=== PATIENT | male | born 1970 | race African-American/Black ===

== ENCOUNTER 2024-10-08 16:07 | Inpatient (IN) | payer OTHER ==
[~2024-10-08] VITALS: Ht 182.9 cm; Wt 89.1 kg
[2024-10-08] MEDS ORDERED: ONDANSETRON HCL 4 MG/2 ML VIAL IVP PRN (16:30)
[2024-10-08] MEDS ORDERED: MAGNESIUM HYDROXIDE SUSPENSION 30 ML UDCUP PO PRN (16:30)
[2024-10-08 16:48] LABS: BASOPHILS % (AUTO) 0.7 % (0.0-2.0); HEMATOCRIT 44.2 % (41-53); HEMOGLOBIN 14.6 g/dL (13.5-17.5); LYMPHOCYTES # (AUTO) 2.4 K/uL (1.0-4.8); LYMPHOCYTES % (AUTO) 39.3 % (22.0-44.0); MEAN CORPUSCULAR HEMOGLOBIN 28.9 pg (26.0-34.0); MEAN CORPUSCULAR HGB CONC 33.1 G/dL (31.0-37.0); MEAN CORPUSCULAR VOLUME 87 fL (80-100); MONOCYTES # (AUTO) 0.6 K/uL (0.1-1.0); MONOCYTES % (AUTO) 9.2 % (2.0-9.0); NEUTROPHILS # (AUTO) 2.9 K/uL (1.8-7.7); NEUTROPHILS % (AUTO) 48.8 % (40.0-70.0); PLATELET COUNT (AUTO) 459 K/uL (150-450); RED BLOOD CELL COUNT(AUTO) 5.05 MIL/uL (4.50-5.90); RED CELL DISTRIBUTION WIDTH 14.6 % (11.5-14.5)
[2024-10-08 16:57] LABS: ANION GAP 4 mmol/L (8-16); CALCIUM, TOTAL 8.8 mg/dL (8.8-10.5); CARBON DIOXIDE 29 mmol/L (22-29); CHLORIDE 106 mmol/L (98-107); CREATININE 1.34 mg/dL (0.60-1.30); GLOMERULAR FILTR. RATE CALC > 60 mL/min (>60); GLUCOSE,RANDOM 99 mg/dL (70-110); POTASSIUM 4.6 mmol/L (3.5-5.1); SODIUM SERUM 139 mmol/L (136-145); UREA NITROGEN, BLOOD 15 mg/dL (7-18)
[2024-10-08 17:06] LABS: B-TYPE NATRIURETIC PEPTIDE 1130 pg/mL (0-100)
[2024-10-08 17:07] LABS: TROPONIN I-HIGH SENSITIVITY 121 ng/L (<76)
[2024-10-08 17:34] LABS: ALCOHOL, BLOOD (SERUM) < 3 mg/dL (0-10)
[2024-10-08] MEDS: ASPIRIN 325 MG TABLET PO ONE (17:53)
[2024-10-08] MEDS: METOPROLOL TARTRATE 25 MG TABLET PO ONE (18:29)
[2024-10-08] MEDS: FUROSEMIDE 40 MG/4 ML VIAL IVP ONE (18:29)
[2024-10-08 18:44] LABS: APPEARANCE,URINE CLEAR (CLEAR); BILIRUBIN,URINE NEGATIVE (NEGATIVE); COLOR,URINE LIGHT YELLOW (YELLOW); GLUCOSE, URINE (UA) NEGATIVE (NEGATIVE); KETONES,URINE NEGATIVE (NEGATIVE); LEUKOCYTE ESTERASE ,URINE SMALL (NEGATIVE); NITRATE,URINE POSITIVE (NEGATIVE); OCCULT BLOOD,URINE NEGATIVE (NEGATIVE); PH,URINE 6.5 (5.0-8.0); PH,URINE DRUG SCREEN 6.5 (5.0-8.0); PROTEIN,URINE NEGATIVE (NEGATIVE); SPECIFIC GRAVITIY, URINE 1.014 (1.003-1.030); UROBILINOGEN,URINE <=1.0 mg/dL (<=1.0)
[2024-10-08 18:54] LABS: ALCOHOL, URINE DRUG SCREEN NEGATIVE (NEGATIVE); AMPHET/METH SCREEN,URINE POSITIVE (NEGATIVE); BARBITURATE SCREEN, URINE NEGATIVE (NEGATIVE); BENZODIAZEPINES SCREEN,URINE NEGATIVE (NEGATIVE); CANNABINOID SCREEN,URINE POSITIVE (NEGATIVE); COCAINE SCREEN,URINE NEGATIVE (NEGATIVE); METHADONE SCREEN, URINE NEGATIVE (NEGATIVE); OPIATE SCREEN,URINE NEGATIVE (NEGATIVE); PHENCYCLIDINE SCREEN,URINE NEGATIVE (NEGATIVE)
[2024-10-08 19:47] LABS: TROPONIN I-HIGH SENSITIVITY 124 ng/L (<76)
[2024-10-08 20:04] LABS: BACTERIA,URINE Many /HPF (None Seen); RBC,URINE 0-2 /HPF (0-2); SQUAMOUS EPITHELIAL CELL,UR Few /LPF (None Seen)
[2024-10-08 20:28] VITALS: BP 125/74; PULSE 89; RESP 18; TEMP 97.5; O2SAT 97
[2024-10-08 21:23] VITALS: BP 113/50; PULSE 74; RESP 16; TEMP 98.2; O2SAT 97
[2024-10-08] MEDS: ALBUTEROL SULFATE 2.5 MG/0.5 ML NEB SOLUTION NEB PRN (21:39)
[2024-10-08 21:48] VITALS: PULSE 83; RESP 18; O2SAT 100
[2024-10-08 21:49] VITALS: PULSE 83; RESP 18; O2SAT 100
[2024-10-08] MEDS: ZOLPIDEM TARTRATE 5 MG TABLET PO PRN (23:31)
[2024-10-08 23:57] VITALS: BP 120/78; PULSE 97; RESP 20; TEMP 97.7; O2SAT 97
[2024-10-09 03:51] VITALS: BP 130/88; PULSE 92; RESP 20; TEMP 98; O2SAT 97
[2024-10-09 08:00] VITALS: BP 119/75; PULSE 88; RESP 21; TEMP 97.9; O2SAT 97
[2024-10-09] MEDS: FAMOTIDINE 20 MG TABLET PO SCH (08:23)
[2024-10-09] MEDS: LORazepam 2 MG/ML VIAL IVP ONE (08:48)
[2024-10-09] MEDS ORDERED: CefTRIAXone 1 GM/DEXTROSE 50 ML IV SCH (11:00)
[2024-10-09] MEDS: CIPROFLOXACIN HCL 250 MG TABLET PO SCH (11:44)
[2024-10-09 12:00] VITALS: PULSE 90; RESP 20; TEMP 98; O2SAT 96
[2024-10-09 13:31] LABS: TROPONIN I-HIGH SENSITIVITY 91 ng/L (<76)
[2024-10-09] MEDS: ACETAMINOPHEN 325 MG TABLET PO PRN (16:03)
[2024-10-09 16:07] VITALS: BP 117/79; PULSE 93; RESP 18; TEMP 97.9; O2SAT 98
[2024-10-09 19:39] VITALS: BP 133/77; PULSE 102; RESP 18; TEMP 98.6; O2SAT 97
[2024-10-09] MEDS: BENZONATATE 100 MG CAPSULE PO PRN (19:52)
[2024-10-10 00:13] VITALS: BP 131/70; PULSE 105; RESP 16; TEMP 97.9; O2SAT 97
[2024-10-10 04:31] VITALS: BP 125/73; PULSE 96; RESP 16; TEMP 98.6; O2SAT 97
[2024-10-10 08:41] VITALS: BP 116/69; PULSE 102; RESP 18; TEMP 98.1; O2SAT 98
[2024-10-10] MEDS: METOPROLOL SUCCINATE 25 MG ER TABLET PO SCH (11:30)
[2024-10-10 13:15] VITALS: BP 101/44; PULSE 110; RESP 22; TEMP 97.9; O2SAT 97
[2024-10-10] MEDS: FUROSEMIDE 20 MG/2 ML VIAL IVP SCH (13:50)
[2024-10-10] MEDS: LORazepam 2 MG/ML VIAL IVP PRN (13:53)
[2024-10-10] MEDS: LOSARTAN POTASSIUM 25 MG TABLET PO SCH (13:55)
[2024-10-10] MEDS: SPIRONOLACTONE 25 MG TABLET PO SCH (13:55)
[2024-10-10 20:30] VITALS: BP 115/71; PULSE 110; RESP 19; TEMP 97.7; O2SAT 97
[2024-10-11 01:51] VITALS: BP 102/50; PULSE 103; RESP 20; TEMP 98; O2SAT 97
[2024-10-11 04:13] VITALS: BP 95/58; PULSE 95; RESP 18; TEMP 97.9; O2SAT 97
[2024-10-11 07:21] LABS: BASOPHILS % (AUTO) 0.3 % (0.0-2.0); EOSINOPHILS % (AUTO) 2.8 % (1.0-6.0); HEMATOCRIT 50.3 % (41-53); HEMOGLOBIN 17.1 g/dL (13.5-17.5); LYMPHOCYTES # (AUTO) 2.4 K/uL (1.0-4.8); LYMPHOCYTES % (AUTO) 47.1 % (22.0-44.0); MEAN CORPUSCULAR HEMOGLOBIN 29.3 pg (26.0-34.0); MEAN CORPUSCULAR VOLUME 86 fL (80-100); MONOCYTES # (AUTO) 0.8 K/uL (0.1-1.0); NEUTROPHILS # (AUTO) 1.7 K/uL (1.8-7.7); NEUTROPHILS % (AUTO) 33.8 % (40.0-70.0); PLATELET COUNT (AUTO) 527 K/uL (150-450); RED BLOOD CELL COUNT(AUTO) 5.82 MIL/uL (4.50-5.90); RED CELL DISTRIBUTION WIDTH 14.6 % (11.5-14.5); WHITE BLOOD COUNT (AUTO) 5.1 K/uL (4.5-11.0)
[2024-10-11 07:26] LABS: ANION GAP 10 mmol/L (8-16); CALCIUM, TOTAL 9.2 mg/dL (8.8-10.5); CARBON DIOXIDE 24 mmol/L (22-29); CHLORIDE 102 mmol/L (98-107); CREATININE 1.46 mg/dL (0.60-1.30); GLOMERULAR FILTR. RATE CALC > 60 mL/min (>60); GLUCOSE,RANDOM 124 mg/dL (70-110); POTASSIUM 4.4 mmol/L (3.5-5.1); SODIUM SERUM 136 mmol/L (136-145); UREA NITROGEN, BLOOD 17 mg/dL (7-18)
[2024-10-11 08:16] VITALS: BP 98/45; PULSE 90; RESP 18; TEMP 98.4; O2SAT 96
[2024-10-11 12:56] VITALS: BP 134/58; PULSE 99; RESP 18; TEMP 98.4; O2SAT 99
[2024-10-11 17:47] VITALS: BP 106/67; PULSE 100; RESP 18; TEMP 98.3; O2SAT 96
[2024-10-11 20:20] VITALS: BP 118/76; PULSE 94; RESP 16; TEMP 98.1; O2SAT 95
[2024-10-12 00:32] VITALS: BP 113/66; PULSE 92; RESP 16; TEMP 97.7; O2SAT 95
[2024-10-12 03:57] VITALS: BP 110/67; PULSE 83; RESP 17; TEMP 97.9; O2SAT 95
[2024-10-12 07:12] LABS: ANION GAP 12 mmol/L (8-16); CALCIUM, TOTAL 9.1 mg/dL (8.8-10.5); CARBON DIOXIDE 25 mmol/L (22-29); CHLORIDE 101 mmol/L (98-107); CREATININE 1.37 mg/dL (0.60-1.30); GLOMERULAR FILTR. RATE CALC > 60 mL/min (>60); GLUCOSE,RANDOM 107 mg/dL (70-110); POTASSIUM 4.4 mmol/L (3.5-5.1); SODIUM SERUM 138 mmol/L (136-145); UREA NITROGEN, BLOOD 18 mg/dL (7-18)
[2024-10-12 08:10] VITALS: BP 128/67; PULSE 96; RESP 18; TEMP 98.1; O2SAT 98
[2024-10-12] MEDS: LOSARTAN POTASSIUM 25 MG TABLET PO SCH (08:47)
[2024-10-12 12:58] VITALS: BP 90/56; PULSE 92; RESP 18; TEMP 98; O2SAT 100
[2024-10-12 17:25] VITALS: BP 123/72; PULSE 61; RESP 18; TEMP 98; O2SAT 95
[2024-10-12 20:19] VITALS: BP 119/67; PULSE 97; RESP 18; TEMP 97.5; O2SAT 96
[2024-10-13 00:08] VITALS: BP 104/50; PULSE 94; RESP 18; TEMP 97.3; O2SAT 98
[2024-10-13] MEDS ORDERED: SPIRONOLACTONE 25 MG TABLET PO SCH (09:00)
== END 2024-10-13 08:00 | DRG 291 ==
LOC: EMS 16:07 → EDH 16:24 → 5S 19:30
PROVIDERS: ADMIT Internal Medicine; ATTEND Internal Medicine
DX: I50.21 Acute systolic (congestive) heart failure (principal); G92.9 Unspecified toxic encephalopathy; N39.0 Urinary tract infection, site not specified; I42.9 Cardiomyopathy, unspecified; F15.13 Other stimulant abuse with withdrawal; B96.20 Unspecified Escherichia coli [E. coli] as the cause of diseases classified elsewhere; F25.9 Schizoaffective disorder, unspecified; Z79.899 Other long term (current) drug therapy
CPT/HCPCS: 71045; 80048; 80307; 81001; 83880; 84484; 85025; 87077; 87086; 87186; 93005; 93306; 94640; 96374; 99285; G0480; J0696; J1940; J2060; 36415-L1; 36415-TC

== ENCOUNTER 2024-10-13 09:33 | Inpatient (IN) | payer OTHER ==
[~2024-10-13] VITALS: Ht 182.9 cm; Wt 85.0 kg
[2024-10-13 12:00] LABS: BASOPHILS % (AUTO) 1.1 % (0.0-2.0); EOSINOPHILS % (AUTO) 2.5 % (1.0-6.0); HEMATOCRIT 48.3 % (41-53); HEMOGLOBIN 15.8 g/dL (13.5-17.5); LYMPHOCYTES # (AUTO) 2.6 K/uL (1.0-4.8); LYMPHOCYTES % (AUTO) 58.8 % (22.0-44.0); MEAN CORPUSCULAR HEMOGLOBIN 28.7 pg (26.0-34.0); MEAN CORPUSCULAR HGB CONC 32.8 G/dL (31.0-37.0); MEAN CORPUSCULAR VOLUME 87 fL (80-100); MONOCYTES # (AUTO) 0.6 K/uL (0.1-1.0); MONOCYTES % (AUTO) 12.7 % (2.0-9.0); NEUTROPHILS # (AUTO) 1.1 K/uL (1.8-7.7); NEUTROPHILS % (AUTO) 24.9 % (40.0-70.0); PLATELET COUNT (AUTO) 460 K/uL (150-450); RED BLOOD CELL COUNT(AUTO) 5.52 MIL/uL (4.50-5.90); RED CELL DISTRIBUTION WIDTH 14.4 % (11.5-14.5); WHITE BLOOD COUNT (AUTO) 4.4 K/uL (4.5-11.0)
[2024-10-13 12:08] LABS: ANION GAP 12 mmol/L (8-16); CALCIUM, TOTAL 8.5 mg/dL (8.8-10.5); CARBON DIOXIDE 22 mmol/L (22-29); CHLORIDE 101 mmol/L (98-107); CREATININE 1.46 mg/dL (0.60-1.30); GLOMERULAR FILTR. RATE CALC > 60 mL/min (>60); GLUCOSE,RANDOM 165 mg/dL (70-110); POTASSIUM 4.5 mmol/L (3.5-5.1); SODIUM SERUM 135 mmol/L (136-145); UREA NITROGEN, BLOOD 20 mg/dL (7-18)
[2024-10-13 17:36] VITALS: BP 121/77; PULSE 93; RESP 20; TEMP 98.1; O2SAT 100
[2024-10-13] MEDS ORDERED: SODIUM CHLORIDE 3% 15 ML NEB SOLUTION NEB ONE (19:41)
[2024-10-13 20:08] VITALS: BP 111/62; PULSE 82; RESP 18; TEMP 98.5; O2SAT 96
[2024-10-14 04:37] VITALS: BP 104/64; PULSE 79; RESP 18; TEMP 98.5; O2SAT 94
[2024-10-14 05:08] LABS: HIV 1-2 SCREEN 4TH GEN W/RFLX Non Reactive (Non Reactive)
[2024-10-14 08:22] VITALS: BP 108/54; PULSE 94; RESP 18; TEMP 98.2; O2SAT 96
[2024-10-14 10:58] VITALS: BP 117/72; PULSE 81; RESP 18; TEMP 98.6; O2SAT 97
[2024-10-14] MEDS ORDERED: REGADENOSON 0.4 MG/5 ML PF SYRINGE IVP ONE (12:05)
[2024-10-14] MEDS ORDERED: SESTAMIBI TC99M/UD ISOTOPE 1 EA INJ INJ ONE ×2 (12:30→15:00)
[2024-10-14] MEDS: CIPROFLOXACIN HCL 250 MG TABLET PO SCH (12:56)
[2024-10-14] MEDS: SPIRONOLACTONE 25 MG TABLET PO SCH (12:57)
[2024-10-14] MEDS: LOSARTAN POTASSIUM 25 MG TABLET PO SCH (12:57)
[2024-10-14] MEDS: FUROSEMIDE 20 MG TABLET PO SCH (12:57)
[2024-10-14] MEDS: REGADENOSON 0.4 MG/5 ML PF SYRINGE IVP ONE (14:45)
[2024-10-14] MEDS ORDERED: SODIUM CHLORIDE 3% 15 ML NEB SOLUTION NEB ONE (15:04)
[2024-10-14 15:52] VITALS: BP 114/69; PULSE 86; RESP 18; TEMP 98; O2SAT 96
[2024-10-14 21:51] VITALS: BP 114/54; PULSE 81; RESP 18; TEMP 98.8; O2SAT 97
[2024-10-15 01:33] VITALS: BP 112/67; PULSE 91; RESP 18; TEMP 98; O2SAT 97
[2024-10-15 04:00] VITALS: BP 120/73; PULSE 82; RESP 18; TEMP 98.4; O2SAT 99
[2024-10-15 08:30] VITALS: BP 114/69; PULSE 102; RESP 20; TEMP 97; O2SAT 100
[2024-10-15] MEDS ORDERED: SODIUM CHLORIDE 3% 15 ML NEB SOLUTION NEB ONE ×2 (10:31→19:05)
[2024-10-15] MEDS ORDERED: ONDANSETRON HCL 4 MG/2 ML VIAL IVP PRN (11:00)
[2024-10-15] MEDS ORDERED: BISACODYL 10 MG RECTAL RECTAL SUPPOSITORY PR PRN (11:00)
[2024-10-15] MEDS ORDERED: MAGNESIUM HYDROXIDE SUSPENSION 30 ML UDCUP PO PRN (11:00)
[2024-10-15] MEDS ORDERED: ZOLPIDEM TARTRATE 5 MG TABLET PO PRN (11:00)
[2024-10-15] MEDS: METOPROLOL SUCCINATE 25 MG ER TABLET PO SCH (11:39)
[2024-10-15] MEDS: ALPRAZolam 0.25 MG TABLET PO PRN (11:40)
[2024-10-15 11:44] VITALS: BP 117/68; PULSE 93; RESP 18; TEMP 98; O2SAT 96
[2024-10-15 14:13] LABS: MTB PCR w/Rif. Resistance-SPUT NOT DETECTED (Not Detectd)
[2024-10-15] MEDS: HEPARIN SODIUM,PORCINE 5,000 UNITS/ML VIAL SQ SCH (15:32)
[2024-10-15 18:14] VITALS: BP 112/64; PULSE 88; RESP 18; TEMP 98; O2SAT 96
[2024-10-15 20:36] VITALS: BP 108/75; PULSE 86; RESP 18; TEMP 98.3; O2SAT 96
[2024-10-15] MEDS: DOCUSATE SODIUM 100 MG CAPSULE PO SCH (21:58)
[2024-10-16 01:06] LABS: QUANTIFERON+, Nil Value 0.02 IU/mL; QUANTIFERON+,Mitogen Value >10.00 IU/mL; QUANTIFERON+,TB1 Antigen Value 0.03 IU/mL; QUANTIFERON+,TB2 Antigen Value 0.04 IU/mL; QUANTIFERON, TB GOLD PLUS Negative (Negative)
[2024-10-16 05:31] VITALS: BP 134/79; PULSE 86; RESP 18; TEMP 98.3; O2SAT 99
[2024-10-16 08:50] VITALS: BP 127/57; PULSE 90; RESP 16; TEMP 97.8; O2SAT 97
[2024-10-16] MEDS: PANTOPRAZOLE SODIUM 40 MG DR TABLET PO SCH (09:11)
[2024-10-16] MEDS: EMPAGLIFLOZIN 10 MG TABLET PO SCH (09:11)
[2024-10-16 10:00] LABS: MTB PCR w/Rif. Resistance-SPUT NOT DETECTED (Not Detectd)
[2024-10-16] MEDS: INFLUENZA VIRUS VACCINE TVS (6MO+) 2024-25/PF 45 MCG/0.5 ML SYRINGE IM. ONE (19:15)
[2024-10-16 19:33] VITALS: BP 128/64; PULSE 79; RESP 18; TEMP 98.5; O2SAT 97
[2024-10-16] MEDS: ZOLPIDEM TARTRATE 5 MG TABLET PO PRN (21:11)
[2024-10-17 07:23] VITALS: BP 126/64; PULSE 76; RESP 18; TEMP 98.4; O2SAT 97
[2024-10-17] MEDS: ACETAMINOPHEN 325 MG TABLET PO PRN (12:32)
[2024-10-17] MEDS ORDERED: EMPA10TA3 PO (19:18)
[2024-10-17] MEDS ORDERED: LOSA-381 PO (19:19)
[2024-10-17] MEDS ORDERED: FURO20TA5 PO (19:19)
[2024-10-17] MEDS ORDERED: SPIR-37 PO (19:20)
[2024-10-17] MEDS ORDERED: METO25XL PO (19:20)
[2024-10-17 20:50] VITALS: BP 99/60; PULSE 89; RESP 18; TEMP 98.7; O2SAT 98
[2024-10-18 03:57] VITALS: BP 103/49; PULSE 72; RESP 18; TEMP 97.5; O2SAT 98
[2024-10-18 08:00] VITALS: BP 93/52; PULSE 76; RESP 18; TEMP 98; O2SAT 98
[2024-10-18 08:01] VITALS: BP 113/67; RESP 18; O2SAT 98
[2024-10-18 15:32] VITALS: BP 91/40; PULSE 91; RESP 19; TEMP 97.8; O2SAT 99
[2024-10-18 15:35] VITALS: BP 119/73; PULSE 98; RESP 18; O2SAT 99
[2024-10-18 19:33] VITALS: BP 121/69; PULSE 69; RESP 18; TEMP 98.6; O2SAT 98
[2024-10-18] MEDS: LOSARTAN POTASSIUM 25 MG TABLET PO SCH (20:27)
[2024-10-19 03:59] VITALS: BP 115/63; PULSE 64; RESP 18; TEMP 97.9; O2SAT 99
[2024-10-19 07:46] VITALS: BP 108/62; PULSE 78; RESP 19; TEMP 97.9; O2SAT 99
[2024-10-19] MEDS: METOPROLOL SUCCINATE 25 MG ER TABLET PO SCH (08:19)
[2024-10-19] MEDS: FUROSEMIDE 20 MG TABLET PO SCH (12:00)
== END 2024-10-19 13:58 | DRG 292 ==
LOC: EMS 09:33 → EDH 15:12 → 6S 16:57 → 5S 10-14 10:40 → 4E 10-15 19:06 → UNDODISIN 10-19 11:20
PROVIDERS: ADMIT Internal Medicine; ATTEND Internal Medicine
DX: I50.23 Acute on chronic systolic (congestive) heart failure (principal); E87.1 Hypo-osmolality and hyponatremia; I42.9 Cardiomyopathy, unspecified; N28.9 Disorder of kidney and ureter, unspecified; D75.839 Thrombocytosis, unspecified; F15.10 Other stimulant abuse, uncomplicated; Z79.899 Other long term (current) drug therapy
CPT/HCPCS: 71250; 78452; 80048; 85025; 86480; 87015; 87206; 87389; 87556; 94640; 99285; A9500; G0378; J1644; J2785; 36415-L1; 36415-TC

== ENCOUNTER 2024-10-27 15:56 | Inpatient (IN) | payer OTHER ==
[~2024-10-27] VITALS: Ht 182.9 cm; Wt 86.4 kg
[~2024-10-27 15:56] MED LIST: EMPA10TA3 PO; FURO20TA5 PO; LOSA-381 PO; METO25XL PO; SPIR-37 PO
[2024-10-27 16:28] LABS: BASOPHILS % (AUTO) 0.6 % (0.0-2.0); HEMATOCRIT 42.9 % (41-53); HEMOGLOBIN 14.2 g/dL (13.5-17.5); LYMPHOCYTES # (AUTO) 2.5 K/uL (1.0-4.8); LYMPHOCYTES % (AUTO) 50.8 % (22.0-44.0); MEAN CORPUSCULAR HEMOGLOBIN 28.5 pg (26.0-34.0); MEAN CORPUSCULAR VOLUME 86 fL (80-100); MONOCYTES # (AUTO) 0.5 K/uL (0.1-1.0); MONOCYTES % (AUTO) 9.5 % (2.0-9.0); NEUTROPHILS # (AUTO) 1.7 K/uL (1.8-7.7); NEUTROPHILS % (AUTO) 35.1 % (40.0-70.0); PLATELET COUNT (AUTO) 302 K/uL (150-450); RED BLOOD CELL COUNT(AUTO) 4.97 MIL/uL (4.50-5.90); RED CELL DISTRIBUTION WIDTH 14.4 % (11.5-14.5); WHITE BLOOD COUNT (AUTO) 4.9 K/uL (4.5-11.0)
[2024-10-27 16:35] LABS: ANION GAP 12 mmol/L (8-16); CALCIUM, TOTAL 8.5 mg/dL (8.8-10.5); CARBON DIOXIDE 23 mmol/L (22-29); CHLORIDE 107 mmol/L (98-107); CREATININE 1.27 mg/dL (0.60-1.30); GLOMERULAR FILTR. RATE CALC > 60 mL/min (>60); GLUCOSE,RANDOM 129 mg/dL (70-110); SODIUM SERUM 142 mmol/L (136-145); UREA NITROGEN, BLOOD 18 mg/dL (7-18)
[2024-10-27] MEDS: FUROSEMIDE 20 MG/2 ML VIAL IVP ONE (16:37)
[2024-10-27 16:41] LABS: ALBUMIN 2.9 g/dL (3.4-5.0); BILIRUBIN,DIRECT 0.1 mg/dL (0.00-0.20); BILIRUBIN,TOTAL 0.5 mg/dL (0.1-1.0); TOTAL PROTEIN, SERUM 7.3 g/dL (6.4-8.2)
[2024-10-27 16:44] LABS: PROTHROMBIN TIME 10.6 SEC (9.4-11.6)
[2024-10-27 16:46] LABS: CREATINE KINASE, TOTAL ONLY 215 U/L (39-308); TROPONIN I-HIGH SENSITIVITY 41 ng/L (<76)
[2024-10-27 16:48] LABS: B-TYPE NATRIURETIC PEPTIDE 552 pg/mL (0-100)
[2024-10-27 17:29] LABS: APPEARANCE,URINE CLEAR (CLEAR); BILIRUBIN,URINE NEGATIVE (NEGATIVE); COLOR,URINE COLORLESS (YELLOW); GLUCOSE, URINE (UA) NEGATIVE (NEGATIVE); KETONES,URINE NEGATIVE (NEGATIVE); LEUKOCYTE ESTERASE ,URINE NEGATIVE (NEGATIVE); NITRATE,URINE NEGATIVE (NEGATIVE); OCCULT BLOOD,URINE NEGATIVE (NEGATIVE); PROTEIN,URINE NEGATIVE (NEGATIVE); SPECIFIC GRAVITIY, URINE 1.009 (1.003-1.030); UROBILINOGEN,URINE <=1.0 mg/dL (<=1.0)
[2024-10-27] MEDS ORDERED: MAGNESIUM HYDROXIDE SUSPENSION 30 ML UDCUP PO PRN (21:15)
[2024-10-27] MEDS ORDERED: IPRATROPIUM BROMIDE 0.5 MG/2.5 ML NEB SOLUTION NEB PRN (21:15)
[2024-10-27] MEDS ORDERED: BISACODYL 10 MG RECTAL RECTAL SUPPOSITORY PR PRN (21:15)
[2024-10-27] MEDS ORDERED: ALBUTEROL SULFATE 2.5 MG/0.5 ML NEB SOLUTION NEB PRN (21:15)
[2024-10-27] MEDS ORDERED: ONDANSETRON HCL 4 MG/2 ML VIAL IVP PRN (21:15)
[2024-10-27] MEDS: LOSARTAN POTASSIUM 25 MG TABLET PO SCH (21:37)
[2024-10-27] MEDS: HEPARIN SODIUM,PORCINE 5,000 UNITS/ML VIAL SQ SCH (23:17)
[2024-10-28] MEDS: SPIRONOLACTONE 25 MG TABLET PO SCH (09:00)
[2024-10-28] MEDS: FUROSEMIDE 20 MG/2 ML VIAL IVP SCH (09:00)
[2024-10-28] MEDS: EMPAGLIFLOZIN 10 MG TABLET PO SCH (09:00)
[2024-10-28] MEDS: METOPROLOL SUCCINATE 25 MG ER TABLET PO SCH (09:00)
[2024-10-28 09:31] VITALS: BP 99/54; PULSE 79; RESP 18; TEMP 98; O2SAT 97
[2024-10-28 12:00] VITALS: BP 100/58; PULSE 80; RESP 18; TEMP 98; O2SAT 96
[2024-10-28] MEDS: PANTOPRAZOLE SODIUM 40 MG DR TABLET PO SCH (14:34)
[2024-10-28] MEDS: HydrOXYzine HCL 50 MG TABLET PO ONE (14:34)
[2024-10-28 15:46] VITALS: BP 107/74; PULSE 82; RESP 18; TEMP 98.1; O2SAT 98
[2024-10-28 20:18] VITALS: BP 116/60; PULSE 83; RESP 19; TEMP 98.6; O2SAT 98
[2024-10-28] MEDS: ZOLPIDEM TARTRATE 5 MG TABLET PO PRN (20:22)
[2024-10-29 04:48] VITALS: BP 104/70; PULSE 87; RESP 17; TEMP 98.4; O2SAT 98
[2024-10-29 07:06] LABS: HEMATOCRIT 45.9 % (41-53); HEMOGLOBIN 15.2 g/dL (13.5-17.5); MEAN CORPUSCULAR HEMOGLOBIN 28.6 pg (26.0-34.0); MEAN CORPUSCULAR HGB CONC 33.1 G/dL (31.0-37.0); MEAN CORPUSCULAR VOLUME 86 fL (80-100); RED BLOOD CELL COUNT(AUTO) 5.32 MIL/uL (4.50-5.90); RED CELL DISTRIBUTION WIDTH 13.9 % (11.5-14.5); WHITE BLOOD COUNT (AUTO) 4.9 K/uL (4.5-11.0)
[2024-10-29 07:07] LABS: BASOPHILS % (AUTO) 0.2 % (0.0-2.0); EOSINOPHILS % (AUTO) 4.2 % (1.0-6.0); LYMPHOCYTES # (AUTO) 2.5 K/uL (1.0-4.8); LYMPHOCYTES % (AUTO) 50.5 % (22.0-44.0); MONOCYTES # (AUTO) 0.7 K/uL (0.1-1.0); MONOCYTES % (AUTO) 13.4 % (2.0-9.0); NEUTROPHILS # (AUTO) 1.6 K/uL (1.8-7.7); NEUTROPHILS % (AUTO) 31.7 % (40.0-70.0); PLATELET COUNT (AUTO) 299 K/uL (150-450)
[2024-10-29 07:09] LABS: ANION GAP 10 mmol/L (8-16); CARBON DIOXIDE 24 mmol/L (22-29); CHLORIDE 104 mmol/L (98-107); CREATININE 1.23 mg/dL (0.60-1.30); GLOMERULAR FILTR. RATE CALC > 60 mL/min (>60); GLUCOSE,RANDOM 97 mg/dL (70-110); SODIUM SERUM 138 mmol/L (136-145); UREA NITROGEN, BLOOD 17 mg/dL (7-18)
[2024-10-29 08:16] VITALS: BP 105/72; PULSE 91; RESP 18; TEMP 98.2; O2SAT 98
[2024-10-29 11:57] VITALS: BP 103/75; PULSE 86; RESP 18; TEMP 98.1; O2SAT 99
[2024-10-29 15:11] VITALS: BP 98/74; PULSE 71; RESP 19; TEMP 99; O2SAT 98
[2024-10-29 20:32] VITALS: BP 98/79; PULSE 87; RESP 19; TEMP 98.1; O2SAT 96
[2024-10-29] MEDS: ACETAMINOPHEN 325 MG TABLET PO PRN (20:58)
[2024-10-30 05:41] VITALS: BP 95/59; PULSE 89; RESP 17; TEMP 98.6; O2SAT 100
[2024-10-30 07:39] VITALS: BP 99/54; PULSE 85; RESP 18; TEMP 98.4; O2SAT 98
[2024-10-30 11:57] VITALS: BP 101/69; PULSE 84; RESP 18; TEMP 98.2; O2SAT 97
[2024-10-30] MEDS ORDERED: PANT-31 PO (15:33)
[2024-10-30] MEDS ORDERED: MAGN-169 PO (15:34)
[2024-10-30] MEDS ORDERED: ACET-2247 PO (15:34)
[2024-10-30 16:30] VITALS: BP 99/64; PULSE 76; RESP 19; TEMP 98.2; O2SAT 99
[2024-10-30 19:32] VITALS: BP 104/75; PULSE 80; RESP 18; TEMP 98.6; O2SAT 97
== END 2024-10-30 20:55 | DRG 291 ==
LOC: EMS 15:56 → EDH 10-28 02:30 → 5N 10-28 09:18 → UNDODISIN 10-29 12:20
PROVIDERS: ADMIT Hospitalist; ATTEND Hospitalist
DX: I11.0 Hypertensive heart disease with heart failure (principal); I50.23 Acute on chronic systolic (congestive) heart failure; Z91.148 Patient's other noncompliance with medication regimen for other reason
CPT/HCPCS: 71045; 80048; 80076; 81003; 82550; 83880; 84484; 85025; 85610; 85730; 93005; 96374; 99285; J1644; J1940; 36415-L1; 36415-TC